=== PATIENT | female | born 1980 | race African-American/Black ===

== ENCOUNTER 2018-01-17 16:43 | Emergency (ER) | payer MEDICAID ==
[~2018-01-17] VITALS: Ht 170.2 cm; Wt 63.5 kg
[2018-01-17] MEDS ORDERED: ONDANSETRON HCL/PF 4 MG/2 ML VIAL IVP ONE (17:30)
[2018-01-17] MEDS ORDERED: IV NS 0.9% 1,000 ML BAG IV ONE (17:30)
[2018-01-17] MEDS ORDERED: DIAZEPAM 10 MG TABLET PO ONE (17:30)
[2018-01-17] MEDS ORDERED: MECLIZINE HCL 12.5 MG TABLET PO ONE (17:30)
[2018-01-17] MEDS ORDERED: DIAZEPAM 5 MG TABLET ONE (17:32)
[2018-01-17] MEDS ORDERED: ONDANSETRON HCL/PF 4 MG/2 ML VIAL ONE (17:32)
[2018-01-17] MEDS ORDERED: MECLIZINE HCL 25 MG TABLET ONE (17:33)
[2018-01-17 17:41] LABS: BASOPHILS % (AUTO) 0.7 % (0.0-2.0); EOSINOPHILS # (AUTO) 0.2 /CMM (0.0-0.7); EOSINOPHILS % (AUTO) 4.4 % (0.0-6.0); HEMATOCRIT 32 % (33-45); HEMOGLOBIN 10.7 g/dL (11.5-14.8); LYMPHOCYTES % (AUTO) 39.7 % (20.0-44.0); MEAN CORPUSCULAR HEMOGLOBIN 28 PG (26.0-33.0); MEAN CORPUSCULAR HGB CONC 34 g/dl (31.0-36.0); MEAN CORPUSCULAR VOLUME 82 fL (82-100); MONOCYTES # (AUTO) 0.6 /CMM (0.1-1.30); NEUTROPHILS # (AUTO) 2.3 /CMM (1.8-8.9); NEUTROPHILS % (AUTO) 44.2 % (43.0-81.0); PLATELET COUNT (AUTO) 611 /CMM (150-450); RDW COEFFICIENT OF VARIATION 15.4 (11.5-15.0); RED BLOOD CELL COUNT(AUTO) 3.89 MIL/uL (4.0-5.2); WHITE BLOOD COUNT (AUTO) 5.1 K/uL (4.3-11.0)
[2018-01-17 17:54] LABS: CALCIUM, SERUM 9.4 mg/dL (8.5-10.1); CARBON DIOXIDE 29 mmol/L (21-32); CHLORIDE 106 mmol/L (98-107); CREATININE 1.1 mg/dL (0.6-1.3); GLUCOSE 76 mg/dL (74-106); POTASSIUM 3.9 mmol/L (3.5-5.1); SODIUM SERUM 142 mmol/L (136-145); UREA NITROGEN, BLOOD 10 mg/dL (7-18)
[2018-01-17 17:57] LABS: ALANINE AMINOTRANSFERASE 54 U/L (12-78); ALKALINE PHOSPHATASE 69 U/L (46-116); ASPARTATE AMINOTRANSFERASE 35 U/L (15-37); BILIRUBIN,DIRECT 0.1 mg/dL (0.0-0.2); BILIRUBIN,TOTAL 0.3 mg/dL (0.2-1.0); TOTAL PROTEIN, SERUM 6.8 g/dL (6.4-8.2)
[2018-01-17 17:59] LABS: TROPONIN I < 0.017 ng/mL (0.00-0.056)
[2018-01-17 18:02] LABS: INR 0.95 (0.85-1.15)
--- NOTE | 2018-01-17 19:06 | NUR ---
RECEIVED REPORT FROM KD VILLEDA FOR [facility].
--- NOTE | 2018-01-17 19:14 | NUR ---
IV removed. Catheter intact and site benign. Pressure and 4x4 applied to site. No bleeding noted. Patient discharged to home in stable condition. Written and verbal after care instructions given. Patient verbalizes understanding of instruction. ambulatory with a steady gait. instructed pt not to drive. pt verbalize understanding.
[2018-01-17 19:15] VITALS: BP 132/64
== END 2018-01-17 19:16 | disposition home or self-care (01) ==
LOC: ER 16:46
DX: R42 Dizziness and giddiness (principal); H93.13 Tinnitus, bilateral; R11.0 Nausea; F41.9 Anxiety disorder, unspecified; Z60.2 Problems related to living alone
CPT/HCPCS: 36415; 70450-TC; 71045-TC; 80048-TC; 80076-TC; 84484-TC; 84702-TC; 85025-TC; 85730-TC; A4606; J2405; J7030; J8597; Z7610

== ENCOUNTER 2018-02-11 23:13 | Emergency (ER) | payer MEDICAID ==
[~2018-02-11] VITALS: Ht 170.2 cm; Wt 63.5 kg
--- NOTE | 2018-02-11 23:30 | NUR ---
to bed 1 ambulatory c/o abdominal pain with n/v since this afternoon. pt aaox4 no acute distress noted, resp even and unlabored. pt unable to provide urine sample at this time. pending er md best.
[2018-02-11] MEDS ORDERED: MORPHINE SULFATE INJ 4 MG/ML DISP.SYRIN ONE (23:40)
[2018-02-11] MEDS ORDERED: ONDANSETRON HCL/PF 4 MG/2 ML VIAL ONE (23:40)
--- NOTE | 2018-02-11 23:47 | NUR ---
rn at bedside to medicate pt.
[2018-02-11 23:52] LABS: BASOPHILS % (AUTO) 0.4 % (0.0-2.0); EOSINOPHILS % (AUTO) 3.6 % (0.0-6.0); HEMATOCRIT 32 % (33-45); HEMOGLOBIN 10.5 g/dL (11.5-14.8); LYMPHOCYTES # (AUTO) 2.8 /CMM (0.8-4.8); LYMPHOCYTES % (AUTO) 40.8 % (20.0-44.0); MEAN CORPUSCULAR HGB CONC 33 g/dl (31.0-36.0); MEAN CORPUSCULAR VOLUME 82 fL (82-100); MONOCYTES # (AUTO) 0.5 /CMM (0.1-1.30); NEUTROPHILS # (AUTO) 3.2 /CMM (1.8-8.9); NEUTROPHILS % (AUTO) 47.2 % (43.0-81.0); PLATELET COUNT (AUTO) 513 /CMM (150-450); RDW COEFFICIENT OF VARIATION 16.3 (11.5-15.0); RED BLOOD CELL COUNT(AUTO) 3.92 MIL/uL (4.0-5.2); WHITE BLOOD COUNT (AUTO) 6.7 K/uL (4.3-11.0)
[2018-02-12] MEDS ORDERED: ONDANSETRON HCL/PF 4 MG/2 ML VIAL IVP ONE
[2018-02-12] MEDS ORDERED: MORPHINE SULFATE INJ 2 MG/ML DISP.SYRIN IV ONE
[2018-02-12] MEDS ORDERED: HYDROCODONE/APAP 5/325MG 1 EACH TABLET PO ONE
[2018-02-12] MEDS ORDERED: IV NS 0.9% 1,000 ML BAG IV ONE
[2018-02-12 00:12] LABS: CALCIUM, SERUM 8.8 mg/dL (8.5-10.1)
[2018-02-12 00:17] LABS: ALBUMIN 3.4 g/dL (3.4-5.0); BILIRUBIN,DIRECT 0.1 mg/dL (0.0-0.2); BILIRUBIN,TOTAL 0.3 mg/dL (0.2-1.0); TOTAL PROTEIN, SERUM 7.1 g/dL (6.4-8.2)
[2018-02-12 01:10] LABS: APPEARANCE,URINE CLEAR (CLEAR); BILIRUBIN,URINE NEGATIVE (NEGATIVE); BLOOD, URINE NEGATIVE Ery/uL (NEGATIVE); COLOR,URINE YELLOW (YELLOW); KETONES,URINE NEGATIVE (NEGATIVE); LEUKOCYTE ESTERASE ,URINE NEGATIVE (NEGATIVE); NITRITE, URINE NEGATIVE (NEGATIVE); PROTEIN,URINE NEGATIVE (NEGATIVE); UGLUCOSE NEGATIVE (NEGATIVE); UROBILINOGEN,URINE 0.2 EU/dL (0.2)
[2018-02-12] MEDS ORDERED: HYDROCODONE/APAP 5/325MG 1 EACH TABLET ONE (01:55)
--- NOTE | 2018-02-12 02:23 | NUR ---
IV removed. Catheter intact and site benign. Pressure and 4x4 applied to site. No bleeding noted. Patient discharged to home in stable condition. Written and verbal after care instructions given. Patient verbalizes understanding of instruction. ambulatory with a steady gait noted. pt aaox4 no acute distress noted, resp even and unlabored. advice pt not to drive or operate any machinery due to pt was given narcotic medicine. pt verbalize understanding.
[2018-02-12 02:26] VITALS: BP 137/75
== END 2018-02-12 02:28 | disposition home or self-care (01) ==
LOC: ER 23:23
DX: N83.209 Unspecified ovarian cyst, unspecified side (principal); F41.9 Anxiety disorder, unspecified; Z60.2 Problems related to living alone
CPT/HCPCS: 36415; 80048-TC; 80076-TC; 81000-TC; 83690-TC; 84703-TC; 85025-TC; A4606; J2270; J2405; J7030; Z7610